=== PATIENT | male | born 1950 | race Caucasian/White ===

== ENCOUNTER 2018-06-20 07:10 | Outpatient (CLI) | payer BC ==
[~2018-06-20] VITALS: Ht 175.3 cm; Wt 114.5 kg
--- NOTE | ~2018-06-20 | HEMODYNAMI ---
PATIENT:CRUZ DOBBINS MEDICAL RECORD: [id number] : 46 LOCATION:[facility] ADMISSION DATE: 06/20/18 Generatedon:06/20/201810:24 Patient name: CRUZ DOBBINS Patient #: [id number] SSN: : 1950 Date of study: 06/20/2018 Page: Of Hemodynamic Procedure Report Patient Data Patient Demographics Procedure consent was obtained First Name: CRUZ Gender: Male Last Name: MU : 1950 [facility] Initial: A Age: 67 year(s) Patient #: [id number] Race: Additional ID: [id number] Contact details [address]: [address] [place] [address] State: [place] City: [place] Zip code: [address] Past Medical History Allergies Allergen Reaction Date Comments Reported Other allergy 04/25/2016 Cephalexin Monohydrate, TYE Inhibitors, Admission Admission Data Admission Date: 06/20/2018 Admission Time: 7:10 Admit Source: Other Procedure Procedure Types Cath Procedure Diagnostic Procedure [facility] w/Coronaries PCI Procedure Coronary Stent Coronary Stent Initial Procedure Description Procedure Date Procedure Date: 06/20/2018 Procedure Start Time: 10:01 Procedure End Time: 10:23 Procedure Staff Name Function Franky Meyer MD Performing Physician Joe Figueroa RT Monitor Jorge Espana RT Scrub Kuledep Foster RN Nurse Procedure Data Cath Procedure Fluoroscopy Diagnostic fluoroscopy Total fluoroscopy Time: 3 time: 3 min min Diagnostic fluoroscopy Total fluoroscopy dose: 516 dose: 516 mGy mGy Contrast Material Contrast Material Type Amount (ml) Isovue 300 93 Entry Location Entry Primary Successful Side Size Upsize Upsize Entry Closure Succes sful Closure Location (Fr) 1 (Fr) 2 (Fr) Remarks Device Remarks Femoral Right 5 Fr 6 Fr Exoseal artery Short Estimated blood loss: 10 ml Diagnostic catheters Device Type Used For End Catheter Placement MULTIPACK Pigtail 5 Fr Procedure catheter MULTIPACK JL 4.0 5Fr Procedure catheter MULTIPACK 3DRC 5Fr Procedure catheter Procedure Complications No complications Procedure Medications Medication Administration Route Dosage 0.9% NaCl I.V. 100 ml/hr Oxygen etCO2 Nasal cannula 2 l/min Heparin Flush Bag added to field 2 bags (1000units/500ml NS) Lidocaine 2% added to field 20 Versed I.V. 2 mg Fentanyl I.V. 100 mcg Versed I.V. 1 mg Heparin Bolus I.V. 4000 units Integrilin (Bolus I.V. 10.2 ml 2mg/ml) Integrilin (Bolus wasted 9.8 ml 2mg/ml) Plavix P.O. 600 mg Hemodynamics Rest Heart Rate: 79 (bpm) Pressure Samples Time Site Value (mmHg) Purpose Heart Use Rate(bpm) 10:07 AO 95/63(77) Snapshot 66 Snapshots Pre Cath Intra NCS Post Cath Vital Signs Time Heart Resp SPO2 etCO2 NIBP (mmHg) Rhythm Pain Sedation Rate (ipm) (%) (mmHg) Status Level (bpm) 9:45:35 90 12 96 0 165/93(140) NSR 0 (11) 10(A) , No pain 9:49:53 76 14 98 156/93(111) NSR 0 (11) 10(A) , No pain 9:54:13 68 14 94 149/82(109) NSR 0 (11) 10(A) , No pain 9:58:25 74 11 94 25.5 132/90(113) NSR 0 (11) 10(A) , No pain 10:03:24 79 11 96 14.2 145/83(118) NSR 0 (11) 10(A) , No pain 10:07:34 66 11 92 11.2 116/71(95) NSR 0 (11) 9(A) , No pain 10:11:48 82 11 93 19.5 126/73(109) NSR 0 (11) 9(A) , No pain 10:15:58 68 13 94 38.2 131/95(116) NSR 0 (11) 9(A) , No pain 10:20:12 67 13 95 25.5 132/80(118) NSR 0 (11) 10(A) , No pain Medications Time Medication Route Dose Verified Delivered Reason Notes Effectiveness by by 9:43:37 0.9% NaCl I.V. 100 Kuldeep Kuldeep Per physician ml/hr Lorigan Lorigan RN RN 9:43:47 Oxygen etCO2 2 Kuldeep Kuldeep Per physician Nasal l/min Kristin Foster cannula RN RN 9:43:58 Heparin Flush added 2 Kuldeep Kuldeep used for Bag to bags Kristin Foster procedure (1000units/500ml RN RN NS) 9:44:08 Lidocaine 2% added 20ml Kuldeep Kuldeep for local to vial Lorregan Foster anesthetic RN RN 9:57:23 Versed I.V. 2 mg Kuldeep Kuldeep for sedation Kritsin Foster RN RN 9:57:37 Fentanyl I.V. 100 Kuldeep Kuldeep for sedation mcg Kristin Foster RN RN 10:03:18 Versed I.V. 1 mg Kuldeep Kuldeep for sedation Kristin Foster RN RN 10:11:56 Heparin Bolus I.V. 4000 Kuldeep Kuldeep for units Kristin Foster anticoagulation RN RN 10:12:14 Integrilin I.V. 10.2 Kuldeep Kuldeep for (Bolus 2mg/ml) ml Kristin Foster antiplatelet RN RN therapy 10:12:26 Integrilin wasted 9.8 Kuldeep Kuldeep to sharp's (Bolus 2mg/ml) ml Kristin Foster RN RN 10:18:28 Plavix P.O. 600 Kuldeep Kuldeep for mg Kristin Foster antiplatelet RN RN therapy Procedure Log Time Note 9:14:32 Informed consent obtained and on chart 9:14:34 Admit Source: Other 9:14:51 Diagnostic Cath status Elective 9:14:53 Joe Figueroa RT(R) sent for patient. Start room use. 9:14:54 Time tracking: Regular hours (M-F 7:00 - 5:00) 9:14:57 Plan of Care:Hemodynamics will remain stable., Cardiac rhythm will remain stable., Comfort level will be maintained., Respiratory function will remain adequate., Patient/ family verbilizes understanding of procedure., Procedure tolerated without complication., Recovers from procedure without complications.. 9:15:08 H&P Date Dictated: 06/02/2018 Within 30 days and on chart., H&P Addendum completed by physician on day of procedure. (MUST COMPLETE FOR ALL OUTPATIENTS). 9:38:43 Patient received from Pre/Post Procedure Room to CCL 3 Alert and oriented. Tansferred to table in Supine position. 9:38:44 Warm blankets applied, and francy hugger turned on for patient comfort. 9:38:45 Correct patient and procedure confirmed by team. 9:38:46 ECG and BP/O2 sat monitors applied to patient. 9:43:37 0.9% NaCl 100 ml/hr I.V. was administered by Kuldeep Foster RN; Per physician; 9:43:47 Oxygen 2 l/min etCO2 Nasal cannula was administered by Kuldeep Fotser RN; Per physician; 9:43:58 Heparin Flush Bag (1000units/500ml NS) 2 bags added to field was administered by Kuldeep Foster RN; used for procedure; 9:44:08 Lidocaine 2% 20ml vial added to field was administered by Kuldeep Foster RN; for local anesthetic; 9:44:15 Vital chart was started 9:44:46 Baseline sample Acquired. 9:55:26 Baseline sample Acquired. 9:55:30 Rhythm: sinus rhythm 9:55:36 Full Disclosure recording started 9:55:37 Pre-procedure instructions explained to patient. 9:55:37 Pre-op teaching completed and patient verbalized understanding. 9:55:39 Family in patients room. 9:55:40 Patient NPO since Midnight. 9:55:42 Is the patient allergic to Iodine/contrast media? No. 9:55:44 Is patient on blood thinner?No 9:55:45 Patient diabetic? Yes. 9:55:46 If diabetic: On Metformin? Yes 9:55:47 If on Metformin: Last Dose? 06/19/2018 9:55:50 Previous problem with sedation/anesthesia? No ? 9:55:51 Snore? No 9:55:52 Sleep apnea? No 9:55:53 Deviated septum? No 9:55:53 Opens mouth fully? Yes 9:55:54 Sticks out tongue? Yes 9:55:56 Airway obstruction? No ? 9:56:00 Dentures? Yes Partial IN 9:56:26 Pre procedure: right dorsailis pedis pulse 1+ Palpable, but thready & weak; easily obliterated 9:56:28 Patient pain scale 0/10 ?. 9:56:31 IV patent on arrival in left forearm with 0.9% NaCl at [facility]. 9:56:34 Lab results completed and on chart. 9:56:38 Right groin area was prepped with chlora-prep and draped in sterile fashion 9:56:39 Alarms reviewed by R. N. 9:56:39 Sharps counted by scrub and verified by R.N. 9:56:58 --------ALL STOP TIME OUT------ 9:56:59 Final Timeout: patient, procedure, and site verified with staff and physician. All members of the team are in agreement. 9:57:01 Right groin site verified by team. 9:57:06 Physical assessment completed. ASA score P 2 - A patient with mild systemic disease as per Franky Meyer MD. 9:57:09 Sedation plan: IV Moderate Sedation Medication:Versed, Fentanyl 9:57:23 Versed 2 mg I.V. was administered by Kuldeep Foster RN; for sedation; 9:57:37 Fentanyl 100 mcg I.V. was administered by Kuldeep Foster RN; for sedation; 9:59:16 Use device set Femoral Dx 9:59:18 Tegaderm 4 x 4 ([id number]) opened to sterile field. 9:59:22 ACIST Syringe (48881) opened to sterile field. 9:59:22 Bag Decanter (2002S) opened to sterile field. 9:59:22 Medline Cath Pack ([id number]) opened to sterile field. 9:59:24 ACIST Hand Control (28041) opened to sterile field. 9:59:25 ACIST Manifold (15312) opened to sterile field. 9:59:26 DIAGNOSTIC WIRE .035 260cm J wire (995888) opened to sterile field. 9:59:28 DIAGNOSTIC Multipack 5Fr catheter set ([id number]) opened to sterile field. 9:59:31 SHEATH Prelude 5Fr 0.035 (SKO-0M-27-035) opened to sterile field. 10:00:17 Zero performed for pressure channel P1 10:01:38 Procedure started. 10:01:42 Local anesthetic to right femoral artery with Lidocaine 2% by Franky Meyer MD.INITIAL ACCESS ONLY 10:03:18 Versed 1 mg I.V. was administered by Kuldeep Foster RN; for sedation; 10:03:56 A 5 Fr sheath was inserted into the Right Femoral artery 10:05:26 A MULTIPACK Pigtail 5 Fr catheter was advanced over the wire and used for Procedure. 10:06:06 LV angiography performed. 10:06:07 LV gram done using SAUCEDO 10:06:12 EF : 30 % 10::17 Injector settings: Ml/sec: 10, Volume: 20, 10:06:33 Catheter removed. 10:07:04 A MULTIPACK JL 4.0 5Fr catheter was advanced over the wire and used for Procedure. 10:08:17 LCA angiography performed. 10:08:39 Use device set TAUTH PCI 10:08:42 Catheter removed. 10::09 A MULTIPACK 3DRC 5Fr catheter was advanced over the wire and used for Procedure. 10:09:19 RCA angiography performed. 10::39 Catheter removed. 10:09:44 CHOICE PT Extra Support 182cm wire ([id number]) opened to sterile field. 10:09:49 INFLATOR Merit BasixCompak (TV6141) opened to sterile field. 10:10:26 GUIDE 6FR XBLAD 4.0 catheter ([id number]) opened to sterile field. 10:10:29 SHEATH Prelude 6Fr 0.035 (JWX-4U-51-035) opened to sterile field. 10:10:39 Sheath upsized to a 6 Fr Short. 10:10:45 6 Fr XBLAD 4 guide catheter was inserted over the wire 10:11:44 Choice PT XS wire advanced. 10:11:56 Heparin Bolus 4000 units I.V. was administered by Kuldeep Foster RN; for anticoagulation; 10:12:14 Integrilin (Bolus 2mg/ml) 10.2 ml I.V. was administered by Kuldeep Foster RN; for antiplatelet therapy; 10:12:26 Integrilin (Bolus 2mg/ml) 9.8 ml wasted was administered by Kuldeep Foster RN; to sharp's; 10:12:54 Wire advanced across lesion. 10:15:00 Place stent Inflation Number: 1 A WILL RX 3.0 x 26 stent ([id number]) was prepped and advanced across the Mid LAD. The stent was deployed at 17 STEFAN for 0:10 (min:sec). 10:15:11 Inflation number: 2 The stent balloon was then re-inflated across the Mid LAD to 19 STEFAN for 0:10 (min:sec). 10:16:08 Inflation number: 3 The stent balloon was then re-inflated across the Mid LAD to 21 STEFAN for 0:10 (min:sec). 10:16:31 Stent catheter was removed intact over wire. 10:16:32 Wire removed. 10:16:32 Guide catheter removed. 10:16:40 EXOSEAL 6Fr (EX600) opened to sterile field. 10:17:24 Sheath removed intact; hemostasis achieved with Exoseal to the Right Femoral artery. 10:17:26 Procedure ended.(Physican Out) 10:18:28 Plavix 600 mg P.O. was administered by Kuldeep Foster RN; for antiplatelet therapy; 10:22:56 Fluoroscopy time 03.00 minutes. 10:22:59 Flurop Dose total: 516 10:22:59 Fluoroscopy dose: 516 mGy 10:23:02 Contrast amount:Isovue 300 93ml. 10:23:04 Sharps counted by scrub and verified by R.N. 10:23:05 Insertion/operative site no bleeding no hematoma. 10:23:09 Post Procedure Pulses reassessed and unchanged 10:23:11 Post-procedure physical assessment completed. ASA score P 2 - A patient with mild systemic disease as per Franky Meyer MD. 10:23:13 Post procedure rhythm: unchanged. 10:23:16 Estimated blood loss: 10 ml 10:23:17 Post procedure instruction explained to patient.Patient verbalizes understanding. 10:23:18 Patient needs reinforcement of post procedure teaching. 10:23:23 Procedure type changed to Cath procedure, Diagnostic procedure, LHC, LHC w/Coronaries, PCI procedure, Coronary Stent, Coronary Stent Initial 10:23:23 Procedure and supply charges have been captured, reviewed, submitted and are correct. 10:23:26 Procedure Complication : No complications 10:23:44 Vital chart was stopped 10:23:45 See physician's report for complete and final results. 10:23:46 Report given to Pre/Post Procedure Room. 10:23:48 Patient transfered to Pre/Post Procedure Room with Stretcher. 10:23:50 Procedure ended. 10:23:50 Full Disclosure recording stopped 10:24:01 End room use (Document Last) Intervention Summary Intervention Notes Time ActionType Lesion and Equipment Used Action# Pressure Duration Attributes 10:15:00 Place stent Mid LAD WILL RX 3.0 x 1 17 00:10 26 stent ([id number]) 10:15:11 Reinflate Mid LAD WILL RX 3.0 x 2 19 00:10 stent 26 stent balloon ([id number]) 10:16:08 Reinflate Mid LAD WILL RX 3.0 x 3 21 00:10 stent 26 stent balloon ([id number]) Device Usage Item Name Manufacture Quantity Catalog Number Hospital Part Current Minimal Lot# / Charge Number Stock Stock Serial# Code Tegaderm 4 x 4 3M 1 [id number] [id number] [id number] 5 (1626W) ACIST Syringe Acist 1 41258 747448 331744 712928 20 (97456) [employer] Bag Decanter Microtek 1 2001S 995726 62972 872601 5 (2001S) Medical Inc. Medline Cath Cardinal 1 [id number] 597382 36565 795169 5 Pack Health ([id number]) ACIST Hand Acist 1 47454 990697 007985 830675 5 Control (02934) [employer] Inc ACIST Manifold Acist 1 27574 435045 442798 891523 5 (64341) [employer] Inc DIAGNOSTIC WIRE St [place] 1 261441 538671 584690 740324 30 .035 260cm J wire (866612) DIAGNOSTIC Cardinal 1 [id number] 788512 02970 588317 30 Multipack 5Fr Health catheter set ([id number]) SHEATH Prelude Merit 1 [id number]-8Z-87-035 578154 828977 050560 5 5Fr 0.035 Medical (TLU-1T-68-035) MULTIPACK Cardinal 1 393419 5 Pigtail 5 Fr Health catheter MULTIPACK JL Cardinal 1 427888 5 4.0 5Fr Health catheter MULTIPACK 3DRC Cardinal 1 180227 5 5Fr catheter Health CHOICE PT Extra [place] 1 [id number] 567893 963618 943385 5 Support 182cm Scientific wire ([id number]) INFLATOR Merit Merit 1 JR5959 077217 041837 480777 15 BasixArgoPay Medical (MP0087) GUIDE 6FR XBLAD Cardinal 1 [id number] 063145 993572 191752 3 4.0 catheter Health ([id number]) SHEATH Prelude Merit 1 LBM-9T-48-35 085190 3490632 942210 5 6Fr 0.035 Medical (ELH-2X-43-035) WILL RX 3.0 x Medtronic 1 [id number] 673431 8020813 159755 5 [id number] 26 stent ([id number]) EXOSEAL 6Fr Cardinal 1 EX600 233682 591473 824744 10 (EX600) Health Signature Audit [place] Stage Time Signature Unsigned Intra-Procedure 06/20/2018 Joe Figueroa 10:24:17 AM RT(R) Signatures Monitor : Joe Figueroa RT Signature : Date : Time : [address] [address]
--- NOTE | ~2018-06-20 | OP ---
PATIENT NAME: CRUZ DOBBINS MEDICAL RECORD: [id number] :46 LOCATION:D.CAT ADMISSION DATE: SURGEON: KYLEIGH VOGEL MD DATE OF OPERATION: 06/20/2018 PROCEDURES: 1. PTCA stent LAD. 2. Left heart catheterization. 3. Selective coronary angiography. 4. Left ventriculogram. INDICATION: Angina and coronary artery disease. PROCEDURE IN DETAIL: After informed consent was obtained and after a detailed description of risks, benefits as well as alternative therapies, the patient elected to proceed with angiogram and angioplasty. The right femoral area was prepped and draped in normal sterile fashion. Right femoral artery was cannulated via modified Seldinger technique with placement of 6-Maltese sheath. All catheters exchanged through this sheath. FINDINGS: The left ventriculogram was performed in standard 30-degree SAUCEDO view, reveals global hypokinesis throughout all segments. Overall ejection fraction is 30%. SELECTIVE CORONARY ANGIOGRAPHY: 1. Left main showed no significant angiographic disease. 2. Left anterior descending has multiple previously placed stents. There are 2 areas of 85% in-stent restenosis in the mid vessel. 3. The left circumflex has multiple previously placed stents. These are widely patent. 4. Right coronary artery is chronically totally occluded. PTCA STENT OF THE LAD: The stent used was a 3.0 x 26 mm Felix. Result was 0% residual stenosis. OVERALL IMPRESSION: Successful PTCA stent of the LAD going from 85% in-stent restenosis to 0% residual stenosis. TRANSINT:[id number] Voice Confirmation ID: [id number] DOCUMENT ID: [id number] KYLEIGH VOGEL MD at 1950 CC: [id number] DICTATION DATE: 06/20/18 1021 MARKETING CONSULTANT: 06/20/18 1050 DEP CLI 06/20/18 [id number] [place] [address]
[~2018-06-20 07:10] MED LIST: ASPIRIN 81 MG E81 MG PO; BUMEX 1 MG TAB1 MG PO; CORDARONE200 MG PO; COREG25 MG PO; GLUCOPHAGE1000 MG PO; IMDUR60 MG PO; KLOR-CON M2020 MEQ PO; NITROSTAT0.4 MG SL; NORVASC5 MG PO; OMEGA-3100 MG PO; PLAVIX75 MG PO
[2018-06-20] MEDS ORDERED: TOUJEO SOL300 UNIT/1 SC (07:32)
[2018-06-20 07:40] VITALS: BP 142/65; Ht 175.3 cm; Wt 114.5 kg
[2018-06-20 08:02] LABS: HEMATOCRIT 40.1 % (42.0-54.0); HEMOGLOBIN 14.1 g/dL (13.5-17.5); LYMPHOCYTES 20.6 % (15-50); MCH 31.8 pg (26.0-34.0); MCHC 35.2 g/dL (31.0-37.0); MCV 90.5 fL (80.0-100.0); MEAN PLATELET VOLUME 12.5 fL (7.4-10.4); NEUTROPHILS 70.2 % (40-80); PLATELET COUNT 132 10x3/uL (130-400); RBC 4.43 10x6/uL (4.20-6.10); RDW 12.6 % (11.5-14.5); WBC 5.5 10x3/uL (4.8-10.8)
[2018-06-20 08:07] LABS: ANION GAP 13.2 mmol/L (8-16); CALCIUM 8.8 mg/dL (8.5-10.1); CARBON DIOXIDE 23.5 mmol/L (21.0-32.0); CREATININE - SERUM 1.4 mg/dL (0.6-1.3); POTASSIUM - SERUM 4.7 mmol/L (3.5-5.1)
[2018-06-20] MEDS ORDERED: PLAVIX75 MG PO (10:36)
== END 2018-06-20 14:30 | disposition home or self-care (01) ==
LOC: D.CATH 07:10
PROVIDERS: Internal Medicine Interventional Cardiology
DX: I25.119 Atherosclerotic heart disease of native coronary artery with unspecified angina pectoris (principal); T82.855A Stenosis of coronary artery stent, initial encounter; Z01.812 Encounter for preprocedural laboratory examination

== ENCOUNTER 2018-06-27 05:25 | Day surgery (SDC) | payer BC ==
[~2018-06-27] VITALS: Ht 177.8 cm; Wt 114.3 kg
--- NOTE | ~2018-06-27 | HP ---
PATIENT: CURZ DOBBINS MEDICAL RECORD: [id number] ACCOUNT: [id number] LOCATION:D.[facility] : 48 ADMISSION DATE: 06/27/18 PCP: HISTORY AND PHYSICAL EXAMINATION NameCRUZ DOBBINS (67yo, M) ID# [id number]. Date/Time06/24/2018 11:[id number] 1950Service Dept.[facility] ClinicProviderEDRAJENDRA FLYNN MDInsuranceMed Primary: [place] Insurance # : [id number] Policy/Group # : [id number] Referring Provider Name : DANIA BURGESS Employer Name : [employer] My Data Prescription: ESI1 - Member is eligible. Chief Complaint Followup: Implanted defibrillator generator failure needs aicd gen change Patient's Care Team Referring Provider (): DANIA BURGESS: [address], [address], [place] [address], , Patient's Pharmacies [place] [address] ([facility]): [address] [facility] [place] [address], , Vitals BP:140/90 sitting L arm 06/24/2018 11:26 amBP Cuff Size:adult 06/24/2018 11:26 amHR:66,reg 06/24/2018 11:26 amHt:5 ft 10 in 06/24/2018 11:27 amWt:252 lbs 06/24/2018 11:26 amNotes:needs generator exchange for aicd 06/24/2018 11:27 amBMI:36.2 06/24/2018 11:27 amAllergies Reviewed Allergies TYE INHIBITORS: CoughADHESIVECEPHALEXINKEFLEXLOSARTANSULFA (SULFONAMIDE ANTIBIOTICS)Medications Reviewed Medications amLODIPine 5 mg tablet Take 1 tablet(s) every day by oral route.06/23/18 enteredKathy WilsonAspir- enteredKathy Wilsonbumetanide 1 mg tablet Take 1 tablet(s) every day by oral route.06/23/18 [facility] Wilsoncar[facility] 25 mg tablet Take 1 tablet(s) twice a day by oral route.06/23/18 [facility] ER 60 mg tablet,extended release 24 hr Take 1 tablet(s) every day by oral route.06/23/18 [facility] HospitalKlor-Con M20 mEq tablet,extended release Take 1 tablet(s) every day by oral route.06/23/18 [facility] WilsonmetFORMIN 1,000 mg tablet Take 1 tablet(s) twice a day by oral route.06/23/18 [facility] HospitalNitrostat 0.[address] 1 tablet(s) by sublingual route.06/23/18 [facility] HospitalToujeo SoloStar U-300 [place]67/10/18 [facility] HospitalProblems Reviewed Problems Cardiomyopathy Paroxysmal ventricular tachycardia - Onset: 06/23/2018 Atrial fibrillation - Onset: 06/23/2018 Sinus node dysfunction - Onset: 06/23/2018 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 Automatic implantable cardiac defibrillator in situ - Onset: 06/23/2018 Family History HISTORY AND PHYSICAL [id number] CRUZ DOBBINS Reviewed Family History Father- Myocardial infarction ( age: 45)Mother- Diabetes mellitus - Hypertensive disorderBrother- Heart disease ( age: 69) - hx CABGSocial History Reviewed Social History Cardiology Family history of heart disease?: Y Smoking Status: Never smoker High Cholesterol: Y High blood pressure: Y Exercise level: Occasional Overweight: Y Obese: Y Diabetes: Y Alcohol intake: Occasional Marital status: Surgical History Reviewed Surgical History Other - kidney stone removal, cholecystectomy, bilat knee replacements, appendectomy, Other - 04/25/2016 - PTCA/STENT LCX Other - 04/20/2016 - PTCA/STENT LAD Other - 01/20/2014 - PTCA/STENT LAD , LCX Other - 10/14/2012 - STENT PLACEMENT AICD - 12/11/2010 - defibrillator medtronic virtuoso II [id number] Insj/rplcmt defib w/lead(s) - 12/11/2010 Past Medical History Reviewed Past Medical History Angina: Y - improved with Imdur Arrhythmia: Y Coronary Artery Disease: Y Diabetes: Y Heart Disease: Y Heart stents: Y Hyperlipidemia: Y Hypertension: Y Notes: cardiomyopathy, EF 11/16/2010 30-35% Documents for Discussion N/A Screening None recorded. HPI Dysrhythmia Reported by patient. Symptoms: bradycardia Frequency: continuous Limitations: mild Alleviating Factors: controlled on current medication; controlled with meds and aicd Cardiomyopathy Automatic implantable cardio defibrillator ROS Patient reports exercise intolerance but reports no fever, no night sweats, no significant weight gain, and no significant weight loss. He reports shortness of breath when walking but reports no chest pain, no arm pain on exertion, no HISTORY AND PHYSICAL [id number] HUGGS,CRUZ A shortness of breath when lying down, no palpitations, and no known heart murmur. He reports shortness of breath but reports no cough, no wheezing, and no coughing up blood. He reports muscle aches and muscle weakness but reports no arthralgias/joint pain, no back pain, and no swelling in the extremiti es. He reports no dry eyes, no irritation, and no vision change. He reports no difficulty hearing and no ear pain. He reports no frequent nosebleeds and no nose/sinus problems. He reports no sore throat, no bleeding gums, no snoring, no dry mouth, no mout h ulcers, no oral abnormalities, and no teeth problems. He reports no jugular vein distension and no swollen glands. He reports no abdominal pain, no vomiting, normal appetite, no diarrhea, not vomiting blood, no nausea, and no constipation. He reports no i ncontinence, no difficulty urinating, no hematuria, and no increased frequency. He reports no abnormal mole, no jaundice, and no rashes. He reports no loss of consciousness, no weakness, no numbness, no seizures, no dizziness, and no headaches. He reports no depression, no sleep disturbances, feeling safe in relationship, and no alcohol abuse. He reports no fatigue. He reports no swollen glands and no bruising. He reports no runny nose, no sinus pressure, no itching, no hives, and no frequent sneezing. ROS as noted in the HPI Physical Exam Patient is a 67-year-old male. Constitutional: General Appearance healthy-appearing and obese. Level of Distress NAD. Ambulation ambulating normally. Cardiovascular: Apical Impulse not displaced or no thrill. Heart Auscultation normal s1 and s2; no murmurs, rubs, or gallops; and RRR and bradycardia. Arterial Pulses no abdominal aorta bruits, femoral bruits, or popliteal bruits and 2+ bilateral, carotid 2+ bilateral, femoral 2+ bilateral, popliteal 2+ bilateral, and dorsalis pedis 2+ bilateral. Edema no edema or varicosities. Lungs: Repiratory Effort no dyspnea. Percussion no hyperresonance or dullness or flatness. Auscultation no wheezing, rhonchi, or rales / crackles and breathing sounds normal, good air movement, and CTA except as noted. Abdomen: Bowl Sounds normal. Inspection and Palpation no tenderness, guarding, masses, or rebound tenderness and soft and non-distended. Liver non-tender and no hepatomegaly. Spleen non-tender and no splenomegaly. Hernia none palpable. Musculoskeletal System: Gait And Stance normal gait and stance. Digits and Nails normal nails and no cyanosis. Joints, Bones, and Muscles limited ROM and abnormal strength. Neurologic: Cranial Nerves grossly intact. Reflexes DTRs 2+ bilaterally throughout. Sensation grossly intact. Lymph Nodes: Lymph Nodes no cervical LAD, supraclavicular LAD, axillary LAD, or inguinal LAD. Eyes: Lids and Conjunctivae no discharge or pallor and non-injected. Pupils PERRLA. Cornea grossly intact. EOM EOMI. Lens clear. Sclerae non-icteric. Neck: Neck no masses, enlarged lymph nodes, or carotid bruits and supple and trachea midline. Thyroid no enlargement or nodules and non-tender. Skin: Inspection and Palpation no rash, lesions, ulcers, jaundice, or abnormal nevi. HISTORY AND PHYSICAL [id number] CRUZ DOBBINS Assessment / Plan Cardiomyopathy Automatic implantable cardio defibrillator battery end-of-life 1. Implanted defibrillator generator failure T82.118A: Breakdown (mechanical) of other cardiac electronic device, initial encounter Discussion Notes Automatic implantable cardio defibrillator battery end-of-life. I have discussed his disease process with him in detail as well as the alternative methods of treatment. We discussed Generator exchange including the expected benefits and risks which includ e bleeding, infection, stroke, , and imponderables. He understands all the above and wishes to proceed with planned surgery. ELBA FLYNN MD CC: [id number] DICTATION DATE: 06/24/18 1100 CELL COVERER: EDWARD 06/24/18 [address] [facility] [address] [place] [address]
--- NOTE | ~2018-06-27 | OP ---
PATIENT NAME: CRUZ DOBBINS MEDICAL RECORD: [id number] :46 LOCATION:[facility] ADMISSION DATE: SURGEON: ANDRZEJ FLYNN MD DATE OF OPERATION: 06/27/2018 SURGEON: Andrzej Flynn MD ANESTHESIA: General, Dr. Vicente. OPERATION PERFORMED: AICD pulse generator exchange. 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 INDICATION FOR OPERATION: Pulse generator end of life. FINDINGS OF THE OPERATION: The explanted generator Medtronic model number N991XHF, serial number [id number]. Newly implanted pulse generator Medtronic model number NDNC8I8, serial number [id number]. LEAD ANALYSIS: Good chronic leads. Atrial lead; threshold 0.4 volts, current lead threshold 0.5 milliamps, resistance 552 ohms. P-wave 1.1, slew rate 0.4. Ventricular lead threshold 1.3 volts, impedance 589 ohms, R-wave 6.5. ESTIMATED BLOOD LOSS: Less than 5 cc. DESCRIPTION OF PROCEDURE: After informed consent, adequate preoperative medication evaluation, the patient was brought to the operating room, placed on the table in the supine position. After induction of general anesthesia and application of appropriate monitoring devices, the left chest was prepped and draped in sterile field. Utilizing Betadine scrub, alcohol, and Betadine solution, betadine-impregnated drape was also used, 1% lidocaine was infiltrated over the device as well as in the pulse generator pocket. An incision was made and dissection carried down to the device, device was explanted. The leads were analyzed. Hemostasis was achieved. The new pulse generator was then connected to the leads and the pulse generator placed in the pocket. The pocket was irrigated. Instrument count and sponge count were correct times 2. Pocket was closed in layers utilizing 2-0 Vicryl on deep subcutaneous tissue, 3-0 Vicryl on superficial subcutaneous tissue and skin approximated with 5-0 subcuticular Monocryl. Sterile dressings were applied. The patient tolerated the procedure well and was transferred to postanesthesia recovery in satisfactory condition. TRANSINT:[id number] Voice Confirmation ID: [id number] DOCUMENT ID: [id number] OPERATIVE REPORT [id number] GLENDYMayte,ANDRZEJ JUAN MD CC: [id number] DICTATION DATE: 06/27/1855 SIGNALER: 06/27/1815 [facility] [place] [id number] [place] [id number]
[~2018-06-27 05:25] MED LIST changes: +TOUJEO SOL300 UNIT/1 SC
[2018-06-27 05:58] LABS: HEMATOCRIT 42.6 % (42.0-54.0); HEMOGLOBIN 14.5 g/dL (13.5-17.5); MCH 31.3 pg (26.0-34.0); MEAN PLATELET VOLUME 12.4 fL (7.4-10.4); RBC 4.63 10x6/uL (4.20-6.10); RDW 13.1 % (11.5-14.5); WBC 6.5 10x3/uL (4.8-10.8)
[2018-06-27 06:08] LABS: APTT 25.7 SECONDS (22.8-39.4); INR 0.96 (0.85-1.17); PROTIME 12.3 SECONDS (11.6-15.0)
[2018-06-27 06:10] LABS: ANION GAP 15.9 mmol/L (8-16); CALCIUM 9.1 mg/dL (8.5-10.1); CARBON DIOXIDE 25.3 mmol/L (21.0-32.0); CREATININE - SERUM 1.9 mg/dL (0.6-1.3); POTASSIUM - SERUM 4.2 mmol/L (3.5-5.1)
[2018-06-27 07:07] VITALS: BP 164/84; Ht 177.8 cm; Wt 114.3 kg
[2018-06-27] MEDS ORDERED: ULTRAM50 MG PO (08:51)
== END 2018-06-27 10:48 | disposition home or self-care (01) ==
LOC: D.OPS 05:25
PROVIDERS: Internal Medicine Cardiovascular Disease
DX: Z45.02 Encounter for adjustment and management of automatic implantable cardiac defibrillator (principal); I42.9 Cardiomyopathy, unspecified; Z01.812 Encounter for preprocedural laboratory examination

== ENCOUNTER 2018-08-21 19:31 | Emergency (ER) | payer BC ==
[~2018-08-21] VITALS: Ht 177.8 cm; Wt 114.5 kg
[~2018-08-21 19:31] MED LIST changes: +ULTRAM50 MG PO
[2018-08-21 19:39] VITALS: Ht 177.8 cm; Wt 114.5 kg
[2018-08-21 20:22] LABS: APPEARANCE HAZY (CLEAR); BILIRUBIN NEGATIVE (NEGATIVE); COLOR YELLOW (YELLOW); EPITHELIAL CELLS RARE /hpf (0-5); GLUCOSE 1000 mg/dL (NEGATIVE); KETONE NEGATIVE (NEGATIVE); NITRITE NEGATIVE (NEGATIVE); PROTEIN 3+ mg/dL (NEGATIVE); RED CELLS - URINE 0-5 /hpf (0-5); SPECIFIC GRAVITY 1.015 (1.005-1.020); UROBILINOGEN NORMAL (NORMAL)
[2018-08-21 20:22] LABS: BASOPHILS 0.2 % (0-2); EOSINOPHILS 0 % (0-7); HEMATOCRIT 42.8 % (42.0-54.0); HEMOGLOBIN 14.6 g/dL (13.5-17.5); IMMATURE GRANULOCYTES 0.3 % (0-5); LYMPHOCYTES 3.4 % (15-50); MCH 31.9 pg (26.0-34.0); MCHC 34.1 g/dL (31.0-37.0); MCV 93.4 fL (80.0-100.0); MEAN PLATELET VOLUME 12.8 fL (7.4-10.4); MONOCYTES 7.9 % (2-11); NEUTROPHILS 88.2 % (40-80); PLATELET COUNT 134 10x3/uL (130-400); RBC 4.58 10x6/uL (4.20-6.10); RDW 13.1 % (11.5-14.5); WBC 16.6 10x3/uL (4.8-10.8)
[2018-08-21 20:23] LABS: BACTERIA MANY /hpf (NONE SEEN)
[2018-08-21 20:35] LABS: ALBUMIN 3.4 g/dL (3.4-5.0); ANION GAP 19.1 mmol/L (8-16); BILIRUBIN - TOTAL 1.82 mg/dL (0.2-1.3); CALCIUM 9.2 mg/dL (8.5-10.1); CARBON DIOXIDE 22.4 mmol/L (21.0-32.0); CREATININE - SERUM 1.4 mg/dL (0.6-1.3); POTASSIUM - SERUM 4.5 mmol/L (3.5-5.1); PROTEIN - SERUM 7.9 g/dL (6.4-8.2)
[2018-08-21 20:49] LABS: THYROID STIMULATING HORMONE 2.52 uIU/mL (0.36-3.74)
[2018-08-21] MEDS ORDERED: CIPRO500 MG PO (21:54)
[2018-08-21] MEDS ORDERED: NORCO 7.5/325 T1 TA1 PO (21:56)
[2018-08-21 22:05] VITALS: BP 144/71
== END 2018-08-21 22:05 | disposition home or self-care (01) ==
LOC: D.ER 19:31
PROVIDERS: Family Medicine
DX: N41.0 Acute prostatitis (principal); R33.9 Retention of urine, unspecified; Z86.73 Personal history of transient ischemic attack (TIA), and cerebral infarction without residual deficits; E11.9 Type 2 diabetes mellitus without complications; I11.0 Hypertensive heart disease with heart failure; I50.9 Heart failure, unspecified; I25.10 Atherosclerotic heart disease of native coronary artery without angina pectoris; Z95.0 Presence of cardiac pacemaker

== ENCOUNTER 2018-08-23 19:56 | Emergency (ER) | payer BC ==
[~2018-08-23] VITALS: Ht 177.8 cm; Wt 113.6 kg
[~2018-08-23 19:56] MED LIST changes: +CIPRO500 MG PO; +NORCO 7.5/325 T1 TA1 PO
[2018-08-23 20:04] VITALS: Ht 177.8 cm; Wt 113.6 kg
[2018-08-23 20:59] VITALS: BP 148/88
== END 2018-08-23 20:57 | disposition home or self-care (01) ==
LOC: D.ER 19:56
DX: R33.9 Retention of urine, unspecified (principal); T83.098A Other mechanical complication of other urinary catheter, initial encounter; Z86.73 Personal history of transient ischemic attack (TIA), and cerebral infarction without residual deficits; E11.9 Type 2 diabetes mellitus without complications; I11.0 Hypertensive heart disease with heart failure; I50.9 Heart failure, unspecified